=== PATIENT | male | born 1965 | race Caucasian/White ===

== ENCOUNTER 2016-10-25 15:11 | Emergency (ER) | payer OTHER ==
[~2016-10-25] VITALS: Ht 170.2 cm; Wt 75.8 kg
[~2016-10-25 15:11] MED LIST: CHLO5CAP2 PO; CIPR-255 PO
[2016-10-25 15:20] VITALS: Ht 170.2 cm; Wt 75.8 kg
--- NOTE | 2016-10-25 15:38 | EMERGENCY ROOM VISIT NOTE ---
History Report prepared by Noel: Tanja Perez Under the Supervision of: Dr. Nestor Pichardo D.O. First contact with patient: 15:31 Chief Complaint: FLANK PAIN Stated Complaint: RT SIDE ABD PAIN-PAINFUL TO THE TOUCH History of Present Illness The patient is a 51 year old male who presents to the Emergency Room with complaints of persistent left flank pain starting last night. He has worsening pain with palpation. He is unsure about any history of kidney stones. He had shingles many years ago. He denies any history of abdominal surgeries. The patient occasionally drinks alcohol. He chews tobacco but does not smoke cigarettes. He denies rashes, chest pain, shortness of breath, nausea, vomiting , abdominal pain, groin pain, testicular pain, urinary symptoms, weakness, or any other complaints. Source of History: patient Onset: last night Position: other (left flank) Timing: other (persistent) Modifying Factors (Worsening): other (palpation) Associated Symptoms: No chest pain, No SOB, No nausea, No vomiting, No abdominal pain, No urinary symptoms, No weakness, No rash Review of Systems See HPI for pertinent positives & negatives. A total of 10 systems reviewed and were otherwise negative. Past Medical & Surgical Medical Problems: (1) ANXIETY STATE NOS (2) DEPRESSIVE DISORDER NEC (3) ESOPHAGEAL REFLUX (4) FAMILY HISTORY OF OTHER CARDIOVASCULAR DISEASES (5) HYPERLIPIDEMIA NEC/NOS (6) HYPERTENSION NOS (7) TOBACCO USE DISORDER Family History Hypertension Seizures Social History Smoking Status: Never Smoker Smokeless Tobacco Use: Yes Alcohol Use: occasionally Drug Use: none Marital Status: Housing Status: unknown Occupation Status: employed Current/Historical Medications Scheduled Lisinopril (Lisinopril), 5 MG PO DAILY Omeprazole (Prilosec), 20 MG PO DAILY Pravastatin Sodium (Pravastatin Sodium), 40 MG PO HS Allergies Coded Allergies: No Known Allergies (Unverified , 03/22/16) Physical Exam Vital Signs Date Time Temp Pulse Resp B/P (MAP) Pulse Ox O2 Delivery O2 Flow Rate FiO2 10/25/16 18:00 37.0 91 20 129/83 96 10/25/16 15:20 37.0 91 20 129/83 96 Room Air Physical Exam GENERAL: Patient is awake, alert, and in no acute distress. Patient is resting comfortably and showing no signs of anxiety EYES: The conjunctivae are clear. The pupils are round and reactive. EARS, NOSE, MOUTH AND THROAT: The nose is without any evidence of any deformity. Mucous membranes are moist tongue is midline NECK: The neck is nontender and supple. RESPIRATORY: Normal respiratory effort is noted there is no evidence of wheezing rhonchi or rales CARDIOVASCULAR: Regular rate and rhythm noted there no murmurs rubs or gallops normal S1 normal S2 GASTROINTESTINAL: The abdomen is soft. Bowel sounds are present in all quadrants. Abdomen is nontender BACK: Mild left CVA tenderness to percussion, no midline tenderness noted, range of motion appears intact. MUSCULOSKELETAL/EXTREMITIES: There is no evidence of gross deformity full range of motion is noted in the hips and shoulders SKIN: There is no obvious evidence of any rash. There are no petechiae, pallor or cyanosis noted. NEUROLOGIC: Patient is awake alert and oriented x3 strength is symmetric patellar reflexes are 2+ bilaterally Medical Decision & Procedures ER Provider Diagnostic Interpretation: CT results as stated below per my review and radiologist interpretation. ABD/PELVIS NO IV OR ORAL CONT CT DOSE: 500.30 mGycm HISTORY: Flank pain left flank pain TECHNIQUE: Multiaxial CT images of the abdomen and pelvis were performed without contrast. A dose lowering technique was utilized adhering to the principles of ALARA. COMPARISON STUDY: 03/15/2016 FINDINGS: Lung bases are clear. Liver spleen and pancreas are unremarkable in overall morphology. Partial malrotation right kidney is noted and is unchanged. The left kidney demonstrates a 1 mm nonobstructing calcification at its lower pole. No evidence for an obstructing urinary tract calculus. Scattered colonic diverticuli. No evidence for diverticulitis. Nonobstructive bowel pattern. IMPRESSION: 1. No acute process of the abdomen or pelvis. 2. Nonobstructive bowel pattern. 3. Scattered colonic diverticulosis. 4. 1 mm nonobstructing calcification lower pole left kidney. 5. 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 The above report was generated using voice recognition software. It may contain grammatical, syntax or spelling errors. Electronically signed by: Alberto Dhillon M.D. 10/25/2016 4:16 PM Dictated Date/Time: 10/25/2016 4:12 PM Laboratory Results 10/25/16 15:40 Red Blood Count 6.05, Mean Corpuscular Volume 80.2, Mean Corpuscular Hemoglobin 28.1, Mean Corpuscular Hemoglobin Concent 35.1, Mean Platelet Volume 10.0, Neutrophils (%) (Auto) 57.0, Lymphocytes (%) (Auto) 27.9, Monocytes (%) (Auto) 12.3, Eosinophils (%) (Auto) 2.0, Basophils (%) (Auto) 0.6, Neutrophils # (Auto ) 3.80, Lymphocytes # (Auto) 1.86, Monocytes # (Auto) 0.82, Eosinophils # (Auto ) 0.13, Basophils # (Auto) 0.04 10/25/16 15:40 Test 10/25/16 15:40 10/25/16 16:30 White Blood Count 6.66 K/uL (4.8-10.8) Red Blood Count 6.05 M/uL (4.7-6.1) Hemoglobin 17.0 g/dL (14.0-18.0) Hematocrit 48.5 % (42-52) Mean Corpuscular Volume 80.2 fL (80-100) Mean Corpuscular Hemoglobin 28.1 pg (25-34) Mean Corpuscular Hemoglobin Concent 35.1 g/dl (32-36) Platelet Count 221 K/uL (130-400) Mean Platelet Volume 10.0 fL (7.4-10.4) Neutrophils (%) (Auto) 57.0 % Lymphocytes (%) (Auto) 27.9 % Monocytes (%) (Auto) 12.3 % Eosinophils (%) (Auto) 2.0 % Basophils (%) (Auto) 0.6 % Neutrophils # (Auto) 3.80 K/uL (1.4-6.5) Lymphocytes # (Auto) 1.86 K/uL (1.2-3.4) Monocytes # (Auto) 0.82 K/uL (0.11-0.59) Eosinophils # (Auto) 0.13 K/uL (0-0.5) Basophils # (Auto) 0.04 K/uL (0-0.2) RDW Standard Deviation 36.2 fL (36.4-46.3) RDW Coefficient of Variation 12.6 % (11.5-14.5) Immature Granulocyte % (Auto) 0.2 % Immature Granulocyte # (Auto) 0.01 K/uL (0.00-0.02) Anion Gap 6.0 mmol/L (3-11) Est Creatinine Clear Calc Drug Dose 74.3 ml/min Estimated GFR () 89.6 Estimated GFR (Non- 77.3 BUN/Creatinine Ratio 11.9 (10-20) Calcium Level 9.1 mg/dl (8.5-10.1) Total Bilirubin 0.9 mg/dl (0.2-1) Direct Bilirubin 0.1 mg/dl (0-0.2) Aspartate Amino Transf (AST/SGOT) 25 U/L (15-37) Alanine Aminotransferase (ALT/SGPT) 29 U/L (12-78) Alkaline Phosphatase 78 U/L (45-117) Total Protein 7.2 gm/dl (6.4-8.2) Albumin 4.0 gm/dl (3.4-5.0) Lipase 213 U/L (73-393) Urine Color DK YELLOW Urine Appearance CLOUDY (CLEAR) Urine pH 5.0 (4.5-7.5) Urine Specific [place] 1.030 (1.000-1.030) Urine Protein TRACE (NEG) Urine Glucose (UA) NEG (NEG) Urine Ketones TRACE (NEG) Urine Occult Blood NEG (NEG) Urine Nitrite NEG (NEG) Urine Bilirubin NEG (NEG) Urine Urobilinogen NEG (NEG) Urine Leukocyte Esterase NEG (NEG) Urine WBC (Auto) 1-5 /hpf (0-5) Urine RBC (Auto) 5-10 /hpf (0-4) Urine Hyaline Casts (Auto) 1-5 /lpf (0-5) Urine Epithelial Cells (Auto) 0-5 /lpf (0-5) Urine Bacteria (Auto) NEG (NEG) Urine Crystals CALCIUM OXALATE (NONE Laboratory results per my review. Medications Administered Medications (Trade) Dose Ordered Sig/Zahraa Route Start Time Stop Time Status Last Admin Dose Admin Ketorolac Tromethamine (Toradol Inj) 30 mg NOW STAT IV 10/25/16 15:39 10/25/16 15:40 DC 10/25/16 15:58 30 MG Sodium Chloride 1,000 ml @ 999 mls/hr Q1H1M STAT IV 10/25/16 15:39 10/25/16 16:39 DC 10/25/16 15:57 999 MLS/HR Ondansetron HCl (Zofran Inj) 4 mg NOW STAT IV 10/25/16 15:39 10/25/16 15:40 DC 10/25/16 15:58 4 MG ED Course 153: The patient was evaluated in room B11B. A complete history and physical examination were performed. 153: Zofran Inj 4 mg IV, Sodium Chloride 1000 ml @ 999 mls/hr IV, Toradol Inj 30 mg IV 1752: Upon reevaluation, the patient is resting comfortably. I discussed the results and treatment plan with him. He verbalized agreement of the treatment plan. He was discharged home. Medical Decision Prior records/ancillary studies reviewed. Triage Nursing notes reviewed. Differential diagnosis: Etiologies such as renal colic, appendicitis, diverticulitis, mesenteric ischemia, aortic pathology, infections, inflammatory bowel disease, PUD, biliary pathology, UTI, as well as others were entertained. The patient is a 51-year-old male who presented to the emergency department for evaluation of left flank pain. The patient had reproducible left flank pain but was sent to the emergency department by his primary care physician for possible kidney stone. I discussed the patient's laboratory and radiographic studies with him. He was treated with IV fluids and IV antiemetics. On subsequent reevaluation he was feeling better and did not wish to have any pain medication. The patient requested to be discharged to home. I discussed the patient's laboratory and radiographic studies with her. He was encouraged to follow-up with his family doctor for reevaluation and continue using Motrin and Tylenol for pain. Medication Reconcilliation Current Medication List: was personally reviewed by me Blood Pressure Screening Patient's blood pressure: Normal blood pressure Impression Primary Impression: Left flank pain Additional Impression: Low back pain Scribe Attestation The scribe's documentation has been prepared under my direction and personally reviewed by me in its entirety. I confirm that the note above accurately reflects all work, treatment, procedures, and medical decision making performed by me. Departure Information Dispostion Home / Self-Care Referrals Deepthi Robb M.D. (MEDICAL) (PCP) Forms HOME CARE DOCUMENTATION FORM, IMPORTANT VISIT INFORMATION Patient Instructions Lumbar Pain Causes, My [facility] Additional Instructions Rest and avoid any strenuous activity. Continue using Motrin and Tylenol as directed for pain. Follow-up with your family this week for reevaluation. Problem Qualifiers Additional Impression: Low back pain Chronicity: acute Back pain laterality: left Sciatica presence: without sciatica Qualified Codes: M54.5 - Low back pain
[2016-10-25] MEDS ORDERED: SODIUM CHLORIDE 0.9% 1000ML 1,000 ML IV STA (15:39)
[2016-10-25] MEDS ORDERED: KETOROLAC TROMETHAMINE 30 MG/ML VIAL IV STA (15:39)
[2016-10-25] MEDS ORDERED: ONDANSETRON INJ 2 MG/ML 2 ML VIAL IV STA (15:39)
[2016-10-25 15:51] LABS: BASO % 0.6 %; BASO ABS # 0.04 K/uL (0-0.2); COMPLETE YES; HEMATOCRIT 48.5 % (42-52); IG% 0.2 %; LYMPH % 27.9 %; LYMPH ABS # 1.86 K/uL (1.2-3.4); MEAN CELL VOLUME 80.2 fL (80-100); MEAN CORPUSCULAR HEMOGLOBIN 28.1 pg (25-34); MEAN CORPUSCULAR HGB CONC 35.1 g/dl (32-36); MONO % 12.3 %; PLATELET COUNT 221 K/uL (130-400); RED BLOOD COUNT 6.05 M/uL (4.7-6.1); WHITE BLOOD COUNT 6.66 K/uL (4.8-10.8)
--- NOTE | 2016-10-25 16:18 | DIAGNOSTIC IMAGING REPORT ---
ABD/PELVIS NO IV OR ORAL CONT CT DOSE: 500.30 mGycm HISTORY: Flank pain left flank pain TECHNIQUE: Multiaxial CT images of the abdomen and pelvis were performed without contrast. A dose lowering technique was utilized adhering to the principles of ALARA. COMPARISON STUDY: 03/15/2016 FINDINGS: Lung bases are clear. Liver spleen and pancreas are unremarkable in overall morphology. Partial malrotation right kidney is noted and is unchanged. The left kidney demonstrates a 1 mm nonobstructing calcification at its lower pole. No evidence for an obstructing urinary tract calculus. Scattered colonic diverticuli. No evidence for diverticulitis. Nonobstructive bowel pattern. IMPRESSION: 1. No acute process of the abdomen or pelvis. 2. Nonobstructive bowel pattern. 3. Scattered colonic diverticulosis. 4. 1 mm nonobstructing calcification lower pole left kidney. 5. 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 The above report was generated using voice recognition software. It may contain grammatical, syntax or spelling errors. Electronically signed by: Alberto Dhillon M.D. 10/25/2016 4:16 PM Dictated Date/Time: 10/25/2016 4:12 PM
[2016-10-25 16:37] LABS: BUN/CREATININE RATIO 11.9 (10-20); CALCIUM 9.1 mg/dl (8.5-10.1); CREATININE 1.1 mg/dl (0.60-1.40); POTASSIUM 3.5 mmol/L (3.5-5.1)
[2016-10-25 16:49] LABS: URINE APPEARANCE CLOUDY (CLEAR); URINE BILIRUBIN NEG (NEG); URINE COLOR DK YELLOW; URINE EPITHELIAL CELL AUTO 0-5 /lpf (0-5); URINE NITRITE NEG (NEG); UROBILINOGEN NEG (NEG)
[2016-10-25 16:51] LABS: MANUAL MICROSCOPIC REQUIRED? NO; REVIEW REQ? YES
[2016-10-25 18:00] VITALS: BP 129/83; PULSE 91; TEMP 37; O2SAT 96
[2016-10-25] MEDS ORDERED: OMEP20CA9 PO (20:32)
[2016-10-25] MEDS ORDERED: PRAV40TA2 PO (23:07)
[2016-10-25] MEDS ORDERED: LSN5 PO (23:07)
== END 2016-10-25 18:01 | disposition home or self-care (01) ==
LOC: C.EDB 15:14
DX: R10.9 Unspecified abdominal pain (principal); M54.5 Low back pain; F41.9 Anxiety disorder, unspecified; F32.9 Major depressive disorder, single episode, unspecified; K21.9 Gastro-esophageal reflux disease without esophagitis; E78.5 Hyperlipidemia, unspecified; I10 Essential (primary) hypertension; Z82.49 Family history of ischemic heart disease and other diseases of the circulatory system; Z82.0 Family history of epilepsy and other diseases of the nervous system

== ENCOUNTER 2016-11-14 23:02 | Emergency (ER) | payer OTHER ==
[~2016-11-14] VITALS: Ht 170.2 cm; Wt 77.4 kg
[~2016-11-14 23:02] MED LIST changes: -CHLO5CAP2 PO; -CIPR-255 PO; +LSN5 PO; +OMEP20CA9 PO; +PRAV40TA2 PO
[2016-11-14 23:11] VITALS: TEMP 36.4; Ht 170.2 cm; Wt 77.4 kg
[2016-11-14] MEDS ORDERED: IBUPROFEN 600 MG TAB PO STA (23:29)
[2016-11-14 23:57] VITALS: BP 123/73; PULSE 65; O2SAT 96
--- NOTE | 2016-11-15 00:01 | EMERGENCY ROOM VISIT NOTE ---
ED Visit Note First contact with patient: 23:18 CHIEF COMPLAINT: Ankle pain HISTORY OF PRESENT ILLNESS: This 51 yo patient presents to the emergency department with family complaining of pain in the left ankle for greater than a week. He went to the family care doctor yesterday and had a negative ultrasound. No direct injury. He follows at Dr. Martins and hasn't appointment in a week. No direct injury to the ankle and no prior injury. Patient denies chest pain, dyspnea, numbness, tingling, swelling, redness, drainage, warmth. The patient complains of pain along the outside of the ankle. The patient denies pain of the foot. The patient rates the pain as aching and 3/10. The patient is able to bear weight on the foot. Constant pain, worse with movement , weight bearing, and the dependent position. No knee pain, the patient is able to move their toes. No numbness or weakness of the foot, no laceration. The patient has not had a previous fracture to this ankle. The patient has taken nothing for the pain. The patient denies any other injury. REVIEW OF SYSTEMS: A 6 system review of systems was completed with positives and pertinent negatives listed in the HPI. ALLERGIES: none MEDICATIONS: Reviewed PMH: Medical Problems: (1) ANXIETY STATE NOS Status: Chronic (2) DEPRESSIVE DISORDER NEC Status: Chronic (3) ESOPHAGEAL REFLUX Status: Chronic (4) FAMILY HISTORY OF OTHER CARDIOVASCULAR DISEASES Status: Chronic (5) HYPERLIPIDEMIA NEC/NOS Status: Chronic (6) HYPERTENSION NOS Status: Chronic (7) TOBACCO USE DISORDER Status: Chronic SOCIAL HISTORY: No drug use PHYSICAL EXAM: Vital Signs: Reviewed Nurse's notes, vital signs stable. GENERAL : White male, no acute distress, but appears in pain, well-developed, well- nourished. MENTAL STATUS: Alert, oriented to person place and time, and cooperative. MUSCULOSKELETAL: The left ankle is not swollen and is minimally tender over the lateral malleolus, but the skin is intact and there is no ligamentous instability. There is no fifth metatarsal tenderness. There is no tenderness over the rest of the foot. There is no calf or tibia/fibular tenderness. There is no visual deformity. The foot and toes are warm and well- perfused. Dorsalis pedis pulse 2+. Sensation to pain and light touch is intact. Capillary refill less than 2 seconds. EMERGENCY DEPARTMENT COURSE: I examined the patient. Patient is given Motrin.. X-rays of the left ankle were reviewed by myself and attending and reveal no fracture. Patient refused crutches and gel splint. Patient states he will follow-up in a week with orthopedics. He is requesting a work note for the next day. This is given to him. Patient was neurovascularly neurologic intact. He is well-appearing. He was advised to return to the ER immediately for severe pain, numbness, tingling, worsening signs or symptoms or as needed. The patient was discharged home in good condition. Differential diagnoses include sprain, strain, fracture, dislocation and other etiologies were considered. DIAGNOSIS: Left ankle pain, initial encounter DISCHARGE INSTRUCTIONS: as below Problem List Medical Problems: (1) ANXIETY STATE NOS Status: Chronic (2) DEPRESSIVE DISORDER NEC Status: Chronic (3) ESOPHAGEAL REFLUX Status: Chronic (4) FAMILY HISTORY OF OTHER CARDIOVASCULAR DISEASES Status: Chronic (5) HYPERLIPIDEMIA NEC/NOS Status: Chronic (6) HYPERTENSION NOS Status: Chronic (7) TOBACCO USE DISORDER Status: Chronic Current/Historical Medications Scheduled Lisinopril (Lisinopril), 5 MG PO DAILY Omeprazole (Prilosec), 20 MG PO DAILY Pravastatin Sodium (Pravastatin Sodium), 40 MG PO HS Allergies Coded Allergies: No Known Allergies (Unverified , 03/22/16) Vital Signs Date Time Temp Pulse Resp B/P (MAP) Pulse Ox O2 Delivery O2 Flow Rate FiO2 11/14/16 23:11 36.4 81 18 136/82 99 Room Air Medications Administered Medications (Trade) Dose Ordered Sig/Zahraa Route Start Time Stop Time Status Last Admin Dose Admin Ibuprofen (Motrin Tab) 600 mg NOW STAT PO 11/14/16 23:29 11/14/16 23:30 DC 11/14/16 23:32 600 MG Departure Information Impression Primary Impression: Left ankle pain Dispostion Home / Self-Care Condition GOOD Referrals Deepthi Robb M.D. (MEDICAL) (PCP) Forms HOME CARE DOCUMENTATION FORM, Work Instructions, Return To Work: 2 days IMPORTANT VISIT INFORMATION Patient Instructions My [facility] Additional Instructions Ibuprofen(Motrin, Advil) may be used for fever or pain. Use 600mg every six hours as needed. Take with food. Avoid using more than 2400mg in a 24 hour period. Do not use 2400mg per day for more than three consecutive days without physician direction. Prolonged inappropriate use can lead to stomach upset or ulcers. This medication can be taken if you need to drive, work, or perform activities which may be dangerous when taking narcotic pain medication. (AND/OR) Acetaminophen(Tylenol) may be used for fever or pain. Use 1000mg every six hours as needed. Avoid using more than 3000mg in a 24 hour period. This medication can be taken if you need to drive, work, or perform activities which may be dangerous when taking narcotic pain medication. Ice compresses for 20 minutes at a time four times daily for 2-3 days. Rest and elevate your injury. Continue current medications. Return to the ER immediately for any numbness, tingling, severe pain, extreme swelling in the extremity or as needed. Call your Orthopedics tomorrow to arrange follow up for your injury. Work Instructions Return To Work: 2 days
--- NOTE | 2016-11-15 06:30 | EMERGENCY ROOM VISIT NOTE ---
ED Visit Note First contact with patient: 23:18 I have personally seen and evaluated the patient with the PA. I agree with the diagnosis and management decisions and have been personally involved in the case. Please see Riya Guthrie PA-C's notes for further details of the history, physical and visit.
--- NOTE | 2016-11-15 06:41 | DIAGNOSTIC IMAGING REPORT ---
LEFT ANKLE MIN 3 VIEWS ROUTINE HISTORY: 51 years-old Male acute left-sided ankle pain COMPARISON: Radiographs of the left ankle 08/27/2013 TECHNIQUE: 3 views of the left ankle FINDINGS: Corticated bone fragments are seen inferior to the medial malleolus, unchanged from comparison suggesting remote avulsion fragments or alternatively accessory ossicles. No osteochondral defect of the talar dome. No acute fracture or dislocation is identified. Mild marginal spurring involves the tibiotalar joint as well as the dorsal midfoot. There is minimal spurring about the calcaneus. There is thickening of the soft tissues in the region of the Achilles tendon which may reflect underlying tendinosis. There is mild soft tissue swelling about the ankle. IMPRESSION: 1. Mild soft tissue swelling about the ankle without acute fracture or dislocation. 2. Mild degenerative changes of the hindfoot and midfoot. 3. Remote avulsion fractures or accessory ossicles adjacent to the medial malleolus, unchanged. The above report was generated using voice recognition software. It may contain grammatical, syntax or spelling errors. Electronically signed by: Abdi Gutierrez M.D. 11/15/2016 6:39 AM Dictated Date/Time: 11/15/2016 6:37 AM
== END 2016-11-14 23:57 | disposition home or self-care (01) ==
LOC: C.EDB 23:03 → C.EDA 23:57
DX: M25.572 Pain in left ankle and joints of left foot (principal); F41.9 Anxiety disorder, unspecified; F32.9 Major depressive disorder, single episode, unspecified; K21.9 Gastro-esophageal reflux disease without esophagitis; Z82.49 Family history of ischemic heart disease and other diseases of the circulatory system; E78.5 Hyperlipidemia, unspecified; I10 Essential (primary) hypertension; Z72.0 Tobacco use; Z79.899 Other long term (current) drug therapy

== ENCOUNTER 2017-11-14 22:17 | Emergency (ER) | payer OTHER ==
[~2017-11-14] VITALS: Ht 170.2 cm; Wt 74.2 kg
[~2017-11-14 22:17] MED LIST changes: -LSN5 PO; -PRAV40TA2 PO
[2017-11-14 22:21] VITALS: TEMP 36.7; Ht 170.2 cm; Wt 74.2 kg
[2017-11-14] MEDS ORDERED: LISI-730 PO (23:07)
[2017-11-14] MEDS ORDERED: PRAV40TA2 PO (23:07)
--- NOTE | 2017-11-14 23:22 | DIAGNOSTIC IMAGING REPORT ---
RIGHT ANKLE 3 VIEWS CLINICAL HISTORY: Fall. Right ankle injury. FINDINGS: 3 views of the right ankle are compared to study dated 09/10/2017. The skeletal structures are well mineralized. No fracture is seen. The ankle mortise is intact. An os trigonum is incidentally noted. A chronic avulsion injury is suggested along the inferior aspect of the medial malleolus. This is unchanged from previous. A joint effusion is identified. Soft tissue swelling is present around the ankle. IMPRESSION: Soft tissue swelling and joint effusion. No right ankle fracture is identified. Electronically signed by: Eber Henriquez M.D. 11/14/2017 11:21 PM Dictated Date/Time: 11/14/2017 11:20 PM
--- NOTE | 2017-11-14 23:33 | EMERGENCY ROOM VISIT NOTE ---
ED Visit Note First contact with patient: 22:29 CHIEF COMPLAINT: Ankle pain HISTORY OF PRESENT ILLNESS: This 52 yo patient presents to the emergency department with family after sustaining an injury to the right ankle and foot with a twisting, inversion motion today. The patient complains of pain along the outside of the ankle. The patient denies pain of the foot. The patient rates the pain as throbbing and 7/10. The patient is barely able to bear weight on the foot. Constant pain, worse with movement, weight bearing, and the dependent position. No knee pain, the patient is able to move their toes. No numbness or weakness of the foot, no laceration. The patient has had a previous fracture to this ankle. The patient has taken nothing for the pain. The patient denies any other injury. Patient follows with Dr. Alvarez. Patient states he had a walking boot but threw it away. He states he would does not want crutches and wants his walking boot back. REVIEW OF SYSTEMS: A 6 system review of systems was completed with positives and pertinent negatives listed in the HPI. ALLERGIES: None MEDICATIONS: Reviewed PMH: Medical Problems: (1) ANXIETY STATE NOS Status: Chronic (2) DEPRESSIVE DISORDER NEC Status: Chronic (3) ESOPHAGEAL REFLUX Status: Chronic (4) FAMILY HISTORY OF OTHER CARDIOVASCULAR DISEASES Status: Chronic (5) HYPERLIPIDEMIA NEC/NOS Status: Chronic (6) HYPERTENSION NOS Status: Chronic (7) TOBACCO USE DISORDER Status: Chronic SOCIAL HISTORY: No drug use PHYSICAL EXAM: Vital Signs: Reviewed Nurse's notes, vital signs hypertensive. GENERAL: White male, no acute distress, but appears in pain, well-developed, well-nourished. MENTAL STATUS: Alert, oriented to person place and time, and cooperative. MUSCULOSKELETAL: The right ankle is swollen and tender over the lateral malleolus, but the skin is intact and there is no ligamentous instability. There is no fifth metatarsal tenderness. There is no tenderness over the rest of the foot. There is no calf or tibia/fibular tenderness. There is no visual deformity. The foot and toes are warm and well-perfused. Dorsalis pedis pulse 2+. Sensation to pain and light touch is intact. Capillary refill less than 2 seconds. EMERGENCY DEPARTMENT COURSE: I examined the patient. Patient declined pain meds. X-rays of the right ankle were reviewed by myself and read by radiology and reveal soft tissue swelling with no new acute fracture per my interpretation. Walking boot was applied to the ankle under my direction and the position was satisfactory. Neurovascular status was rechecked and intact. The patient refused crutches. Patient was advised to follow-up with his orthopedic doctor this week or here in the ER sooner for severe pain, numbness, tingling, worsening signs or symptoms or as needed. Patient refused any other intervention for his ankle. He did not want an Aden wrap, gel splint or crutches. He is requesting a walking boot. The patient was discharged home in good condition. Differential diagnosis includes sprain, strain, fracture, dislocation and other etiologies were considered. Blood pressure was elevated and referred back to PCP. DIAGNOSIS: Right ankle sprain DISCHARGE INSTRUCTIONS: As below Case reviewed with my attending. The chart was completed utilizing [employer] Speech voice recognition software. Grammatical errors, random word insertions, pronoun errors, and incomplete sentences are an occassional consequence of this system due to software limitations, ambient noise, and hardware issues. Any formal questions or concerns about the content, text, or information contained within the body of this dictation should be directly addressed to the physician assistant gm of content & delivery for clarification. Problem List Medical Problems: (1) ANXIETY STATE NOS Status: Chronic (2) DEPRESSIVE DISORDER NEC Status: Chronic (3) ESOPHAGEAL REFLUX Status: Chronic (4) FAMILY HISTORY OF OTHER CARDIOVASCULAR DISEASES Status: Chronic (5) HYPERLIPIDEMIA NEC/NOS Status: Chronic (6) HYPERTENSION NOS Status: Chronic (7) TOBACCO USE DISORDER Status: Chronic Current/Historical Medications Scheduled Lisinopril (Lisinopril), 5 MG PO DAILY Omeprazole (Prilosec), 20 MG PO DAILY Pravastatin Sodium (Pravastatin Sodium), 40 MG PO HS Allergies Coded Allergies: No Known Allergies (Unverified , 03/22/16) Vital Signs Date Time Temp Pulse Resp B/P (MAP) Pulse Ox O2 Delivery O2 Flow Rate FiO2 11/14/17 22:21 36.7 65 18 175/80 98 Room Air Departure Information Impression Primary Impression: Ankle sprain Dispostion Home / Self-Care Condition GOOD Forms HOME CARE DOCUMENTATION FORM, IMPORTANT VISIT INFORMATION Patient Instructions My [facility] [employer] Additional Instructions Ibuprofen(Motrin, Advil) may be used for fever or pain. Use 600mg every six hours as needed. Take with food. Avoid using more than 2400mg in a 24 hour period. Do not use 2400mg per day for more than three consecutive days without physician direction. Prolonged inappropriate use can lead to stomach upset or ulcers. This medication can be taken if you need to drive, work, or perform activities which may be dangerous when taking narcotic pain medication. (AND/OR) Acetaminophen(Tylenol) may be used for fever or pain. Use 1000mg every six hours as needed. Avoid using more than 3000mg in a 24 hour period. This medication can be taken if you need to drive, work, or perform activities which may be dangerous when taking narcotic pain medication. Ice compresses for 20 minutes at a time four times daily for 2-3 days. Rest and elevate your injury. Wear your ankle boot until pain subsides. Do not have it so tight that you cannot feel your foot. Continue current medications. Return to the ER immediately for any numbness, tingling, severe pain, extreme swelling in the extremity or as needed. Call your Orthopedics tomorrow to arrange follow up for your injury.
[2017-11-14 23:50] VITALS: BP 129/70; PULSE 66; O2SAT 98
--- NOTE | 2017-11-15 04:27 | EMERGENCY ROOM VISIT NOTE ---
ED Visit Note First contact with patient: 23:17 Patient seen and evaluated the bedside after discussion with the PA. X-rays reviewed. Discussed with patient results tonight. Discussed prior ankle injury and suspected ankle sprain tonight. Patient again offered crutches and he refused. Discussed immobilization, weightbearing status, elevation, over-the -counter pain medication, close follow-up with orthopedics. He and family bedside verbalized understanding were agreeable with plan.
== END 2017-11-14 23:47 | disposition home or self-care (01) ==
LOC: C.EDB 22:18
DX: S93.401A Sprain of unspecified ligament of right ankle, initial encounter (principal); X50.0XXA Overexertion from strenuous movement or load, initial encounter; F41.9 Anxiety disorder, unspecified; F32.9 Major depressive disorder, single episode, unspecified; K21.9 Gastro-esophageal reflux disease without esophagitis; Z82.49 Family history of ischemic heart disease and other diseases of the circulatory system; E78.5 Hyperlipidemia, unspecified; I10 Essential (primary) hypertension; Z72.0 Tobacco use; Z79.899 Other long term (current) drug therapy